=== PATIENT | female | born 1970 ===

== ENCOUNTER 2017-09-27 15:25 | Outpatient (CLI) | payer BC, OTHER ==
--- NOTE | 2017-10-02 10:17 | MMO ---
BILATERAL SCREENING MAMMOGRAM: DATE: 09/27/17 HISTORY: 47-year-old female for screening mammography. COMPARISON: 09/15/16, 07/09/15, 05/18/14. FINDINGS: Bilateral MLO and CC views of the breasts show heterogeneously dense breast parenchyma, which may low er the sensitivity of mammography. A biopsy clip is seen in the right breast. There is no evidence of suspicious mass, suspicious cluster of microcalcifications, or area of architectural distortion. Interpretation of this mammogram was performed with the assistance of computer-aided detection. IMPRESSION: BIRADS 2: Benign Finding(s) Annual screening mammography is recommended. POS: [facility]
== END 2017-09-27 15:26 | disposition home or self-care (01) ==
LOC: SCSMAMMO 15:25
PROVIDERS: ATTEND Obstetrics & Gynecology
DX: Z12.31 Encounter for screening mammogram for malignant neoplasm of breast (principal)
CPT/HCPCS: 77067